=== PATIENT | male | born 1960 | race Hispanic/Latino ===

== ENCOUNTER 2019-01-23 03:22 | Emergency (ER) | payer MEDICAID ==
[2019-01-23 03:22] VITALS: BMI 35.4
--- NOTE | 2019-01-23 04:24 | ED PDOC ---
Arrival/HPI - General Chief Complaint: Cardiac Arrest Time Seen by Provider: 01/23/19 03:34 Historian: Patient - Critical Care Critical Care Minutes: 30 minutes - History of Present Illness Narrative History of Present Illness (Text): 01/23/19 03:24 58 year old male smoker, whose past medical history includes NIDDM, hypertension, and hemorrhagic CVA, presents to the emergency department by EMS in cardiac arrest. Patient was last seen normal 1 hour prior to EMS arrival. EMS informs 3 epi administered in the field. Patient was asystole throughout. Family explains patient was having chest pain throughout the day. HPI and ROS limited due to patient condition. Time/Duration: Prior to Arrival Context: Home Past Medical History - Provider Review Nursing Documentation Reviewed: Yes - Infectious Disease Hx of Infectious Diseases: None - Psychiatric Hx Depression: No Hx Emotional Abuse: No Hx Physical Abuse: No Hx Substance Use: No - Suicidal Assessment Feels Threatened In Home Enviroment: No Family/Social History - Physician Review Nursing Documentation Reviewed: Yes Family/Social History: No Known Family HX Smoking Status: Heavy Smoker > 10 Cigarettes Daily Hx Alcohol Use: No Hx Substance Use: No Hx Substance Use Treatment: No Allergies/Home Meds Allergies/Adverse Reactions: Allergies No Known Allergies Allergy (Verified 05/01/12 20:49) Home Medications: Home Meds Medication Instructions Recorded Confirmed Metformin Hydrochloride [Metformin] 850 mg PO DAILY 05/01/12 05/01/12 Valsartan [Diovan] 160 mg PO DAILY 05/01/12 05/01/12 Review of Systems - Physician Review All systems were reviewed & negative as marked: Yes - Review of Systems Systems not reviewed;Unavailable: Acuity of Condition Physical Exam - Physical Exam Narrative Physical Exam (Text): 01/23/19 05:10 Gen: unresponsive with CPR in progress ENT: vomitus in the nose. Mouth: "Narendra tube" inserted prior to arrival. Eye: pupils equal, fixed, and dilated. CV: no spontaneous heart rate. Abd: distended. Ext: no edema, no peripheral pulse, IO to LLE. Psych: responds appropriately to questions, normal affect. Neuro: Unresponsive 01/23/19 07:11 Medical Decision Making ED Course and Treatment: 01/23/19 04:[address] call [address] pcp dr[address] paul tran and awaiting call back to provide update and for dr. tran to complete certificate. a al edrs reprot was initiated, 01/23/19 07:11 patient presented to the ED with prolonged time, all rhythms detected were asystole.CPR efforts were continued in the ED but ultimately discontinued as there was near zero chance of recovery. time of called at 331am. - Critical Care Critical Care Minutes: 30 minutes - Scribe Statement The provider has reviewed the documentation as recorded by the Scribe Yahir Shields Provider Scribe Attestation: All medical record entries made by the Scribe were at my direction and personally dictated by me. I have reviewed the chart and agree that the record accurately reflects my personal performance of the history, physical exam, medical decision making, and the department course for this patient. I have also personally directed, reviewed, and agree with the discharge instructions and disposition. Disposition/Present on Arrival - Present on Arrival Any Indicators Present on Arrival: No History of DVT/PE: No History of Uncontrolled Diabetes: No Urinary Catheter: No History of Decub. Ulcer: No History Surgical Site Infection Following: None - Disposition Have Diagnosis and Disposition been Completed?: Yes Diagnosis: Cardiac arrest Disposition: WITH WITHOUT AUTOPSY Disposition Time: 03:31 Patient Plan: Discharge Condition: Forms: [employer] ([place])
--- NOTE | 2019-01-23 04:37 | ED PDOC ---
Arrival/HPI - General Chief Complaint: Cardiac Arrest Time Seen by Provider: 01/23/19 03:34 Historian: Family, EMS - Critical Care Critical Care Minutes: 30 minutes - History of Present Illness Narrative History of Present Illness (Text): 01/23/19 03:23 58 year old male smoker, whose past medical history includes NIDDM, hypertension, and hemorrhagic CVA, presents to the emergency department by EMS in cardiac arrest. Patient was last seen normal 1 hour prior to EMS arrival. EMS informs 3 epi administered in the field. Patient was asystole throughout. Family explains patient was having chest pain throughout the day. HPI and ROS limited due to patient condition. Time/Duration: Prior to Arrival Context: Home Past Medical History - Provider Review Nursing Documentation Reviewed: Yes - Infectious Disease Hx of Infectious Diseases: None - Psychiatric Hx Depression: No Hx Emotional Abuse: No Hx Physical Abuse: No Hx Substance Use: No - Suicidal Assessment Feels Threatened In Home Enviroment: No Family/Social History - Physician Review Nursing Documentation Reviewed: Yes Family/Social History: No Known Family HX Smoking Status: Heavy Smoker > 10 Cigarettes Daily Hx Alcohol Use: No Hx Substance Use: No Hx Substance Use Treatment: No Allergies/Home Meds Allergies/Adverse Reactions: Allergies No Known Allergies Allergy (Verified 05/01/12 20:49) Home Medications: Home Meds Medication Instructions Recorded Confirmed Metformin Hydrochloride [Metformin] 850 mg PO DAILY 05/01/12 05/01/12 Valsartan [Diovan] 160 mg PO DAILY 05/01/12 05/01/12 Review of Systems - Physician Review All systems were reviewed & negative as marked: Yes - Review of Systems Systems not reviewed;Unavailable: Acuity of Condition - Scribe Statement The provider has reviewed the documentation as recorded by the Lowell Shields Provider Scribe Attestation: All medical record entries made by the Debbiibcarlo were at my direction and personally dictated by me. I have reviewed the chart and agree that the record accurately reflects my personal performance of the history, physical exam, medical decision making, and the department course for this patient. I have also personally directed, reviewed, and agree with the discharge instructions and disposition. Disposition/Present on Arrival - Present on Arrival History of DVT/PE: No History of Uncontrolled Diabetes: No Urinary Catheter: No History of Decub. Ulcer: No History Surgical Site Infection Following: None - Disposition Patient Problems: Current Active Problems Problem Status Onset Cardiac arrest Acute
== END 2019-01-23 06:22 ==
LOC: ED 03:22
DX: I46.9 Cardiac arrest, cause unspecified (principal)